=== PATIENT | male | born 1985 | race Caucasian/White ===

== ENCOUNTER 2016-12-09 11:57 | Emergency (ER) | payer MEDICAID ==
[~2016-12-09] VITALS: Ht 190.5 cm; Wt 142.9 kg
[2016-12-09 13:32] VITALS: BP 138/78
[2016-12-09] MEDS: ONDANSETRON ODT 4 MG TAB PO ONE (13:39)
[2016-12-09] MEDS: KETOROLAC TROMETH 60MG/2ML VIAL IM ONE (13:39)
== END 2016-12-09 13:49 | disposition home or self-care (01) ==
LOC: ER 11:57
DX: R03.0 Elevated blood-pressure reading, without diagnosis of hypertension (principal); R51 Headache; F41.9 Anxiety disorder, unspecified; R42 Dizziness and giddiness
CPT/HCPCS: 70450; 96372; 99284; J1885; Q0162

== ENCOUNTER 2021-01-24 18:27 | Emergency (ER) | payer MEDICAID ==
[~2021-01-24] VITALS: Ht 190.5 cm; Wt 158.8 kg
[2021-01-24 19:04] LABS: Basophils # (auto) 0.1 10 ^3/uL (0-0.2); Basophils % (auto) 0.9 % (0.0-2.0); Eosinophils # (auto) 0.1 10 ^3/uL (0-0.8); Eosinophils % (auto) 0.8 % (0.0-7.0); Hematocrit 47.3 % (41.0-53.0); Lymphocytes # (auto) 2.6 10 ^3/uL (0.4-5.4); Lymphocytes % (auto) 26.6 % (10.0-50.0); Mean Corpuscular Hgb Conc. 33.8 g/dL (32.0-36.0); Mean Corpuscular Volume 85.7 fL (80.0-100.0); Monocytes # (auto) 0.6 10 ^3/uL (0-1.3); Monocytes % (auto) 6.4 % (0.0-12.0); Neutrophils # (auto) 6.4 10 ^3/uL (1.6-8.6); Neutrophils % (auto) 65.3 % (37.0-80.0); Nucleated Red Blood Cells % 0.1 %; Red Blood Cells 5.52 10^6/uL (4.5-5.90); Red Cell Distribution Width 14.7 % (11.8-14.3); White Blood Cell 9.7 10^3/uL (4.4-10.8)
[2021-01-24 19:22] LABS: Alanine Aminotransferase 78 U/L (16-61); Albumin 3.5 g/dL (3.4-5.0); Anion Gap 7 (5-15); Aspartate Aminotransferase 39 U/L (15-37); BUN/Creatinine Ratio 14.6; Blood Urea Nitrogen 14 mg/dL (7-18); Calcium 8.6 mg/dL (8.5-10.1); Carbon Dioxide 25 mmol/L (21-32); Chloride 110 mmol/L (98-107); GFR African American 113 mL/min; GFR Non-African American 94 mL/min; Glucose 97 mg/dL (74-106); Potassium 3.9 mmol/L (3.5-5.1); Sodium 142 mmol/L (136-145)
[2021-01-24 19:26] LABS: Alkaline Phosphatase 105 U/L (45-117); Bilirubin, Total 0.6 mg/dL (0.2-1.0)
[2021-01-24 20:08] VITALS: BP 138/82
== END 2021-01-24 20:12 | disposition home or self-care (01) ==
LOC: ER 18:28
DX: R07.9 Chest pain, unspecified (principal); Z20.822 Contact with and (suspected) exposure to COVID-19
CPT/HCPCS: 36415; 71046; 80053; 84484; 85025; 87426; 93005